=== PATIENT | female | born 1945 | race Caucasian/White ===

== ENCOUNTER 2020-05-17 12:10 | Outpatient (CLI) | payer MEDICARE ==
--- NOTE | 2020-05-17 14:49 | MRI ---
MR of the right wrist without IV contrast INDICATION: History of complex tear of the TFCC with right wrist pain since October COMPARISON: Right wrist radiograph dated April 24, 2020 TECHNIQUE: Multiplanar multisequence MR images were obtained of the right wrist without IV contrast. FINDINGS: There are numerous subchondral cystlike abnormalities seen within the lunate and proximal pole of the scaphoid. There is prominent flattening of the medial aspect of the lunate and the proximal pole of the scaphoid with some internal sclerotic change suspicious for changes of repetitive injury and d egenerative change. There is an ulnar positive configuration at the DRUJ. There is nonvisualization of the normal dorsal scapholunate ligament. The interosseous and volar band appear intact. The lunotr iquetral ligaments appear intact. The extrinsic ligaments of the wrist appear intact. There is a central perforation involving the TFC that is near full-thickness measuring 3.6 mm on image 6 of seri es 7. Small intra-articular bodies seen within the DRUJ measuring 1.7 mm. An additional small intra-articular bodies seen within the volar recess of the ulnar carpal joint measuring 4 mm on image 15 of series 4. There is mild tendinosis of the ECU tendon at the level of the wrist carpus. The remaining extensor tendons are intact. The carpal tunnel contents are normal appearing. The FCR and F CU tendons are normal appearing. There is mild joint capsular distention of the radiocarpal and midcarpal and DRUJ. IMPRESSION: 1. 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 There is full-thickness disrup tion of the dorsal band of the scapholunate ligament; however, interosseous and volar band remains intact. 2. Near full-thickness central perforation of the TFC measuring 3.6 mm. 3. Mild tendinosis of the extensor carpi ulnaris tendon at the level the wrist carpus. 4. Intra-articular bodies involving the ulnar carpal band DRUJ Transcribed Date/Time: 05/17/2020 3:15 PM
== END 2020-05-17 12:11 | disposition home or self-care (01) ==
LOC: SCSMRI 12:10
PROVIDERS: ATTEND Orthopaedic Surgery Hand Surgery
DX: S63.591A Other specified sprain of right wrist, initial encounter (principal); M77.9 Enthesopathy, unspecified

== ENCOUNTER 2020-06-07 06:37 | Outpatient (CLI) | payer MEDICARE ==
[2020-06-07 13:55] LABS: Bilirubin Neg (Negative); Blood, Urine 25 (Negative); Glucose, Urine (Dipstick) Normal (Negative); Ketone, Urine Negative (Negative); Leukocyte 500 (Negative); Nitrite Positive (Negative); Protein, Urine (Dipstick) Negative (Neg-Trace); Specific Gravity, Urine 1.015 (1.002-1.036); Urobilinogen Normal mg/dL (Less than 2)
[2020-06-07 14:02] LABS: #Basophils 0.1 10x3/uL (0.0-0.2); #Eosinphils 0.2 10x3/uL (0.0-0.5); #Monocytes 0.9 10x3/uL (0.0-1.1); #Neutrophils 6.8 10x3/uL (1.5-8.4); %Basophils 0.7 % (0.0-2.0); %Eosinophils 1.6 % (0.0-6.0); %Lymphocytes 28.3 % (18.0-47.0); %Monocytes 8.2 % (0.0-10.0); %Neutrophils 60.7 % (40.0-75.0); Hemoglobin 13.6 g/dL (12.0-16.0); Mean Corpuscular HGB CONC 32.1 G/DL (32.0-36.0); Mean Corpuscular Hemoglobin 32.2 PG (27.0-33.0); Mean Corpuscular Volume 100.2 fl (80.0-100.0); Mean Platelet Volume 11.4 fl (7.4-10.4); Platelet Count 307 10x3/uL (130-400); RBC Distribution Width 12.3 % (11.5-14.5); Red Blood Cell (RBC) Count 4.23 10x6/uL (3.90-5.20); White Blood Cell (WBC) Count 11.1 10x3/uL (4.5-11.0)
[2020-06-07 15:33] LABS: Bacteria/HPF Rare-Few HPF (None Seen); RBC/HPF 0-3 HPF (0-3); WBC/HPF 21-50 HPF (0-3)
[2020-06-07 15:39] LABS: Mucous/LPF Rare LPF (<2+)
[2020-06-07 22:14] LABS: SARS-CoV-2 MS2 Positive; SARS-CoV-2 N Gene Negative; SARS-CoV-2 S Gene Negative; SARS-CoV-2 by NAA Not Detected (NotDetected); SARS-CoV-2 orf1ab Negative
== END 2020-06-07 06:38 | disposition home or self-care (01) ==
LOC: LABBT 06:37
PROVIDERS: ATTEND Orthopaedic Surgery Hand Surgery
DX: Z01.812 Encounter for preprocedural laboratory examination (principal); Z20.828 Contact with and (suspected) exposure to other viral communicable diseases; S63.591A Other specified sprain of right wrist, initial encounter
CPT/HCPCS: 81001; 85025; U0003; 87635

== ENCOUNTER 2020-06-12 11:50 | Day surgery (SDC) | payer MEDICARE ==
[2020-06-06 13:26] VITALS: BMI 27.8
[2020-06-12] MEDS ORDERED: Fentanyl 100 MCG/2 ML VIAL ONE ×3 (12:41→13:24)
[2020-06-12] MEDS ORDERED: Vancomycin 1 GM/200 ML BAG ONE (12:51)
[2020-06-12] MEDS ORDERED: Betamet Acet/Betamet Na Ph 30 MG/5 ML VIAL ONE (13:15)
[2020-06-12] MEDS ORDERED: Bupivacaine PF 0.5% 30 ML VIAL ONE (13:15)
[2020-06-12] MEDS ORDERED: EPINEPHrine 1 MG/ML AMP ONE ×2 (13:15→14:49)
[2020-06-12] MEDS ORDERED: Bacitracin Zinc Ointment 30 gm TUBE ONE (13:16)
[2020-06-12] MEDS ORDERED: Thrombin 5000 UNITS/5 ML VIAL ONE (13:16)
[2020-06-12] MEDS ORDERED: Midazolam HCl 2 mg/2 ml Vial ONE (13:24)
[2020-06-12] MEDS ORDERED: Dexamethasone 20 MG/5 ML VIAL ONE (14:18)
[2020-06-12] MEDS ORDERED: PROPOFOL 200 MG/20 ML VIAL ONE (14:18)
[2020-06-12] MEDS ORDERED: PHENYLEPHRINE-NS 100 MCG/ML 10 ML SYRINGE ONE (14:18)
[2020-06-12] MEDS ORDERED: Rocuronium Bromide 10 MG/ML (10ML VIAL) ONE (14:18)
[2020-06-12] MEDS ORDERED: Ondansetron PF 4 MG/2 ML Vial ONE ×2 (14:18→19:33)
[2020-06-12] MEDS ORDERED: Bupivacaine HCl 0.5%/Epinephrine 1:200,000/PF 30 ml Vial ONE (14:18)
[2020-06-12] MEDS ORDERED: Lidocaine 1% PF 5 ML VIAL ONE (14:18)
[2020-06-12] MEDS ORDERED: Phenylephrine 10 MG/ML VIAL ONE (15:03)
[2020-06-12] MEDS ORDERED: Ketorolac Tromethamine 30 MG/ML VIAL ONE (19:09)
--- NOTE | 2020-06-12 20:03 | RAD ---
INTRAOPERATIVE FLUOROSCOPIC IMAGES RIGHT WRIST: History: Ulnar shortening with carpectomy right wrist. Comparison: None FINDINGS: Nine intraoperative fluoroscopic images of the distal right forearm and wrist are submitted. Surgical instruments overlie the wrist. There is a plate and screws transfixing the diaphysis of the ulna. Se veral images demonstrate a metallic pin overlying the carpal bones. Final images demonstrate evidence of removal of the majority of the proximal carpal row. Correlation with intraoperative findings is r ecommended. POS: MELINDA
--- NOTE | 2020-06-13 11:14 | OP ---
DATE OF PROCEDURE: 06/12/2020 PREOPERATIVE DIAGNOSES: 1. Right wrist TFCC tear, radial and central. 2. 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 3. Wrist synovitis. POSTOPERATIVE DIAGNOSES: 1. Radial and central moderate-sized central triangular fibrocartilage tear over 6.5-7 mm x 2-3 mm. 2. Lunate and triquetrum osteoarthritis secondary to lunate possible injury with excellent capitate surface to the lunate, excellent radiolunate fossa as well. 3. Synovitis of wrist. PROCEDURES PERFORMED: 1. Right wrist arthroscopic synovectomy. 2. Right wrist arthroscopic triangular fibrocartilage debridement. 3. Proximal row carpectomy. 4. Rayhack ulnar shortening osteotomy. COMPLICATIONS: None. TOURNIQUET TIME: 42 minutes, initially elevated at 250 mmHg, deflated for 30 minutes and then re-elevated for 61 minutes at the same 250 mmHg pressure. DESCRIPTION OF PROCEDURE: After successful general endotracheal, the limb was prepped and draped. Time-out was done appropriately. The patient also had had a block, which was very successful. We outlined both the dorsal radiocarpal incision as well as the arthroscopic portals, which would incorporate the dorsal radiocarpal incision and the Rayhack osteotomy site. We placed the arm in in-line traction for wrist arthroscopy, outlined the 6U, 6R and 3-4 portals, inflated the joint with 5 mL normal saline through the 3-4 portal and then we were able to visualize the joint. We saw large chondral tears complete down to subchondral bone on the triquetrum as well as some on the lunate. The lunate was over 50% involved circumferentially and we felt that this would not be an ideal candidate to treat the patient's osteoarthritis pain around the scaphoradial articulation since there was so much lunate to triquetral loss. During the scope, we saw marked synovitis and performed arthroscopic synovectomy using a 1.9 shaver as well as we saw an almost 7 mm long by 3 mm wide triangular fibrocartilage tear that was more radial than central and we resected this to a stable rim after we did the synovectomy arthroscopically. We removed the arthroscope. Then, we sutured the ulnar portal with 4-0 nylon interrupted simple pattern. We then made a zigzag incision because we knew on radiographs and via visualization that the ulna would probably protrude through the trimmed triangular fibrocartilage tear because she was ulnar positive, so we carried this incision with the tourniquet inflated through skin and subcutaneous tissue until we finally reached the bone. We subperiosteally freed the bone, identified the site of the plate and then attached with drill, measure, and screw technique the Rayhack osteotomy cut guide for the radius. We then made our cut, removed the cut guide and the wafer. We placed the plate on, coapted it down to anatomic position, then placed three more screws distally. We had to change one screw and then pursued the remainder portion at this time, which was to deflate the tourniquet, which took place for approximately 30 minutes, and then we were able to close the osteotomy site after placing the lag screw through the plate with a running 2-0 Vicryl for the fascia and subcutaneous with 4-0 Monocryl. The skin/epidermis was reapproximated with 4-0 nylon interrupted mattress pattern. Then, we reinflated the tourniquet after exsanguination of the limb. We turned our attention to the radiocarpal joint. A zigzag incision was made through the skin and subcutaneous tissue, identified the compartments and protecting superficial ulnar and superficial radial nerve. We were able to enter the three and four compartment, where we out the extensor pollicis longus from the extensor digitorum communis, made a more distal based flap cut and we left some of the ligamentous structure, intact radius, ulna and then we noticed that after several attempts, we were able to visualize the radiocarpal joint, saw the chondral lesions as described above on the lunate and the triquetrum and felt that, since there was some erosion of the scaphoid, proximal carpectomy would be because the patient has totally normal capitate. We then began circumferentially by identifying the triquetrum with a 0.045 K-wire, drilling it, and then used it to elevate bluntly the undersurface and volar surface of the triquetrum. This was repeated for the lunate and for the scaphoid. The scaphoid was very proximal, 2 mm, caused some disintegration and was not salvageable. As we looked down during the last portion of the proximal carpectomy, the radioscaphocapitate ligament was still intact and we had accomplished this admission. The lunate fossa and articularly well with each other. The x-ray showed that the Rayhack showed slightly 0.5 mm ulnar negative wrist at this time. All three proximal bones were removed and the radioscaphocapitate ligament was intact. So at this point, we released the tourniquet and obtained hemostasis. We closed the capsule with a running 3-0 Prolene buried suture and tied this. We then closed the retinaculum with 2-0 Vicryl interrupted [id number] pattern and we were able to close this in excellent fashion. Subcutaneous closure was accomplished with running 4-0 Monocryl and then 4-0 nylon mattress pattern was used to close the epidural. A bulky dressing was applied with a sugar-tong splint. The patient left the operating room without evidence of anesthetic or operative complication. Job ID: [id number]
== END 2020-06-12 19:55 | disposition home or self-care (01) ==
LOC: SDC 11:50
PROVIDERS: ATTEND Orthopaedic Surgery Hand Surgery
PROC: 0RBN4ZZ Excision of Right Wrist Joint, Percutaneous Endoscopic Approach (ICD-10-PCS; principal; 2020-06-12)
PROC: 0PBM0ZZ Excision of Right Carpal, Open Approach (ICD-10-PCS; 2020-06-12)
PROC: 0PBK0ZZ Excision of Right Ulna, Open Approach (ICD-10-PCS; 2020-06-12)
DX: S63.521A Sprain of radiocarpal joint of right wrist, initial encounter (principal); M65.88 Other synovitis and tenosynovitis, other site; M19.031 Primary osteoarthritis, right wrist; E78.5 Hyperlipidemia, unspecified; I10 Essential (primary) hypertension; Z79.899 Other long term (current) drug therapy; Z88.0 Allergy status to penicillin; Z88.8 Allergy status to other drugs, medicaments and biological substances
CPT/HCPCS: 25130; 25390; 29846; 73110; 76000; C1713; 88305; 88311; J0171; J0702; J1100; J1885; J2250; J2370; J2405; J2704; J3010; J3370; J3490; S0020

== ENCOUNTER 2024-01-23 12:46 | Outpatient (CLI) | payer MEDICARE ==
[2024-01-23 13:57] LABS: #Basophils 0.06 10x3/uL (0.0-0.2); #Eosinphils 0.15 10x3/uL (0.0-0.5); #Monocytes 0.62 10x3/uL (0.0-1.1); #Neutrophils 3.71 10x3/uL (1.5-8.4); %Eosinophils 2.4 % (0.0-6.0); %Lymphocytes 27.1 % (18.0-47.0); %Monocytes 9.9 % (0.0-10.0); %Neutrophils 59.4 % (40.0-75.0); Hematocrit 41.9 % (34.9-44.5); Hemoglobin 14.3 g/dL (12.0-15.5); Mean Corpuscular HGB CONC 34.1 g/dL (32.0-36.0); Mean Corpuscular Hemoglobin 33.6 pg (27.0-33.0); Mean Corpuscular Volume 98.6 fL (81.6-98.3); Mean Platelet Volume 10.6 fL (7.4-10.4); Platelet Count 234 10x3/uL (150-450); RBC Distribution Width 11.7 % (11.5-14.5); Red Blood Cell (RBC) Count 4.25 10x6/uL (3.90-5.03); White Blood Cell (WBC) Count 6.2 10x3/uL (3.5-10.5)
[2024-01-23 14:09] LABS: Anion Gap 15 mmol/L (10-20); BUN (Urea Nitrogen) 9 mg/dL (9.8-20.1); Calc. Creatinine Clearance 0 mL/min (70-130); Calcium 9.9 mg/dL (7.8-10.44); Carbon Dioxide 25 mmol/L (23-31); Chloride 105 mmol/L (98-107); Estimated GFR 63; Glucose 109 mg/dL (83-110); Potassium 3.6 mmol/L (3.5-5.1); Sodium 141 mmol/L (136-145)
== END 2024-01-23 12:47 | disposition home or self-care (01) ==
LOC: LABBT 12:46
PROVIDERS: ATTEND Orthopaedic Surgery Hand Surgery
DX: Z01.818 Encounter for other preprocedural examination (principal); M65.332 Trigger finger, left middle finger; M65.342 Trigger finger, left ring finger; M72.0 Palmar fascial fibromatosis [Dupuytren]
CPT/HCPCS: 80048; 85025; 93005; 93010

== ENCOUNTER 2024-01-27 05:52 | Day surgery (SDC) | payer MEDICARE ==
[2024-01-23 13:06] VITALS: BMI 27.8
[2024-01-27] MEDS ORDERED: Sodium Chloride 0.9% 100 ML ONE (06:29)
[2024-01-27] MEDS ORDERED: CEFAZOLIN 2 GM VIAL ONE (06:29)
[2024-01-27] MEDS ORDERED: Bupivacaine PF 0.5% 30 ML VIAL ONE (06:39)
[2024-01-27] MEDS ORDERED: Bacitracin Zinc Ointment 30 gm TUBE ONE (06:39)
[2024-01-27] MEDS ORDERED: Lidocaine 1% PF 5 ML VIAL ONE (07:02)
[2024-01-27] MEDS ORDERED: Ondansetron PF 4 MG/2 ML Vial ONE ×2 (07:02→10:10)
[2024-01-27] MEDS ORDERED: PROPOFOL 20 ML ONE (07:02)
[2024-01-27] MEDS ORDERED: Labetalol HCl 100 MG/20 ML VIAL ONE (08:59)
[2024-01-27] MEDS ORDERED: fentaNYL 50 mcg/mL 1 mL Vial ONE ×2 (09:00→10:09)
[2024-01-27] MEDS ORDERED: Metoprolol Tartrate 5 MG (5 mL) VIAL ONE (11:02)
== END 2024-01-27 11:40 | disposition home or self-care (01) ==
LOC: SDC 05:52
PROVIDERS: ATTEND Orthopaedic Surgery Hand Surgery
PROC: 0LN80ZZ Release Left Hand Tendon, Open Approach (ICD-10-PCS; principal; 2024-01-27)
PROC: 0LN80ZZ Release Left Hand Tendon, Open Approach (ICD-10-PCS; 2024-01-27)
PROC: 01N40ZZ Release Ulnar Nerve, Open Approach (ICD-10-PCS; 2024-01-27)
PROC: 0JNK0ZZ Release Left Hand Subcutaneous Tissue and Fascia, Open Approach (ICD-10-PCS; 2024-01-27)
DX: M65.332 Trigger finger, left middle finger (principal); M65.342 Trigger finger, left ring finger; M72.0 Palmar fascial fibromatosis [Dupuytren]; Z88.1 Allergy status to other antibiotic agents; Z88.8 Allergy status to other drugs, medicaments and biological substances
CPT/HCPCS: 26055 ×2; 26123; A6223; J0665; J2405; J2704; J3010; J3490; 88304